=== PATIENT | female | born 1960 | race Caucasian/White ===

== ENCOUNTER 2024-01-31 13:45 | Emergency (ER) | payer OTHER, SELFPAY ==
[2024-01-31 13:46] VITALS: BP 140/78; PULSE 85; RESP 16; TEMP 36.9; O2SAT 99
--- NOTE | 2024-01-31 14:58 | EDS_ITS ---
HPI History of Present Illness Chief Complaint: Lower Extremity Injury Informant: patient and spouse/S.O. Narrative Narrative: 63-year-old female approximately 2 weeks postoperative from left knee replacement with Dr. Mix. She states that over the weekend she developed pain in the calf. She was seen today and was sent for Doppler ultrasound which demonstrates a acute DVT in the soleus vein on the left. The rest of the venous system appeared without clots. Patient is denying any chest pain or shortness of breath. She has no known clotting disorder's. The patient typically wears compressive socks but has been using Lebron wrap. However due to discomfort has not been any. Patient did receive a prescription for pain medication from her surgeon today. Patient states she had blood work done in December. From [facility] review she had a normal creatinine normal platelet count. PFSH PFS Home Medications ?Medication ?Instructions ?Recorded ?Last Taken ?Type apixaban 5 mg (74 tabs) tablets in See Rx Instructions .Route 01/31/24 Unknown Rx a dose pack ([employer] DVT-PE Treat .COMPLEX #74 tabs 30D Start) Allergy/AdvReac Type Severity Reaction Status Date / Time No Known Allergies Allergy Verified 01/31/24 13:48 ROS ROS ED Constitutional Constitutional ED: Denies chills or weight loss Eyes Eyes: Denies change in vision or diplopia ENT ENT ED: Denies ear pain, rhinorrhea or sore throat Cardiovascular Cardiovascular: Denies chest pain, orthopnea, palpitations or racing heartbeat Respiratory/Chest Respiratory/Chest: Denies cough, dyspnea or orthopnea Gastrointestinal Gastrointestinal: Denies abdominal pain, diarrhea, nausea or vomiting Genitourinary Genitourinary ED: Denies dysuria, hematuria or urinary frequency Musculoskeletal Musculoskeletal: Reports other Details: calf pain and swelling ; Denies arthralgias or myalgias Integumentary Denies abscess or rash Neurologic Neurologic: Denies headache(s) or weakness Psychiatric Psychiatric: Denies anxiety, depression, suicidal ideation or suicidal thoughts Endocrine Endocrinology: Denies polydipsia, polyphagia or polyuria Allergic/Immunologic Allergic/Immunologic ED: Denies mouth swelling, tongue swelling or urticaria EXAM Physical Exam Const Vital Signs: 01/31/24 13:46 Temperature 98.4 F Temperature Source Oral Pulse Rate 85 Respiratory Rate 16 Blood Pressure 140/78 H Blood Pressure Mean 98 Pulse Ox 99 Oxygen Delivery Method Room Air Positive well nourished, well developed and obese General Appearance ED: well developed and NAD Nutritional Appearance: obese HEENT Reports normocephalic, head/scalp atraumatic and moist mucous membranes Eyes PERRL and EOMs intact bilaterally Neck no lymphadenopathy, supple and no JVD Resp normal respiratory effort and clear to auscultation bilaterally Cardio regular rate, regular rhythm and no murmurs GI normal to inspection, nondistended, normoactive bowel sounds and non-tender Palpation: soft Back/Spine no CVA tenderness and normal ROM Extremity Extremity Narrative: There is bruising over the medial posterior aspect of the left calf. There is a healing anterior midline knee incision. There is swelling of the left leg compared to the right. There is no significant skin discoloration other than the bruising. Tender to palpation. Neuro oriented x3 and CN's II-XII intact bilaterally Sensorium / Orientation: alert Motor Exam: strength 5/5 throughout Psych mental status grossly normal Mood & Affect: Negative for depressed or tearful Skin no rashes or lesions noted and no wounds MDM MDM MDM Narrative Medical decision making narrative: I spoke with the patient and her as well as their surgeon Dr. Mix. Dr. Mix defers to primary care. I spoke with the patient's primary care doctor Dr. Jimenez. I presented the patient with the options of serial ultrasounds as it is below the knee versus treatment. She has concerns about each. At this time though using informed decision she is electing to start Eliquis. States she was recently prescribed Celebrex and when I have her hold that medication she was supposed to start that tomorrow. She will follow-up wit h primary care as well as with orthopedics. History & Record Review Discussion w/independent historian: Patient, Family and Other (Dr Mix) Discharge Plan Triage Chief Complaint: Lower Extremity Injury ED Provider: Chau Merchant Dx/Rx/DC Orders Clinical Impression: DVT of lower extremity (deep venous thrombosis), Pain of left calf Instructions: DVT Complications Prescriptions: New Eliquis DVT-PE Treat 30D Start 5 mg (74 tabs) tablets,dose pack See Rx Instructions .Route .COMPLEX Qty: 74 0RF Rx Instructions: orally per package directions Primary Care Provider: Skye Huitron Referrals: Skye Huitron MD [Primary Care Provider] - 1 Week Ian Mix MD [Med Staff - Active Staff] - Keep Otf appointment Print Language: Lao Disposition Disposition: Home, Self Care
[2024-01-31] MEDS: oxyCODONE 5 MG Tablet PO (15:24)
== END 2024-01-31 16:56 | disposition home or self-care (01) ==
PROVIDERS: Emergency Provider Emergency Medicine; PCP Student in an Organized Health Care Education/Training Program; Visit Provider Emergency Medicine
DX: I82.409 Acute embolism and thrombosis of unspecified deep veins of unspecified lower extremity (principal); M79.662 Pain in left lower leg; Z96.652 Presence of left artificial knee joint
CPT/HCPCS: 99282

== ENCOUNTER → 2024-01-31 | Outpatient (CLI) | payer OTHER, SELFPAY ==
--- NOTE | 2024-01-31 12:57 | VDLE_ITS ---
Reason For Study: LLE PAin Post Op RIGHT LEFT FV is compressible, spontaneous, phasic, GSV is normal. competent and demonstrates normal CFV is compressible, spontaneous, phasic, augmentation. competent, and demonstrates normal Procedure augmentation. This is a venous duplex using B-mode, color FV is compressible, spontaneous, phasic, flow and spectral Doppler. competent and demonstrates normal Exam performed in department. augmentation. The study was technically difficult. POP V is compressible, spontaneous, phasic, A preliminary report was called and/or faxed competent and demonstrates normal to [facility] ED. augmentation. T/P Trunk is compressible. PTV is compressible. LT PerV is compressible. Acute deep vein thrombosis is noted in the Soleus Vein. It is dilated and NONCOMPRESSIBLE. VL/Venous Duplex US, Unilateral Interpretation Summary Acute deep vein thrombosis is noted in the left soleus vein. Ordering Physician: Jamarcus Alicia Referring Physician: Skye Huitron Performed By: Santiago Chambers RVT
== END | disposition home or self-care (01) ==
LOC: CVS 12:53
PROVIDERS: PCP Student in an Organized Health Care Education/Training Program; Referring Provider Physician Assistant; Visit Provider Physician Assistant
DX: M79.662 Pain in left lower leg (principal); Z96.652 Presence of left artificial knee joint
CPT/HCPCS: 93971

== ENCOUNTER → 2024-03-01 | Outpatient (CLI) | payer OTHER, SELFPAY ==
--- NOTE | 2024-03-01 14:28 | VDLE_ITS ---
Reason For Study: Left leg swelling RIGHT LEFT CFV is compressible, spontaneous, phasic, GSV is normal. competent and demonstrates normal CFV is compressible, spontaneous, phasic, augmentation. competent, and demonstrates normal Procedure augmentation. This is a venous duplex using B-mode, color FV is compressible, spontaneous, phasic, flow and spectral Doppler. competent and demonstrates normal Exam performed in department. augmentation. Compared to 01/31/2024. POP V is compressible, spontaneous, phasic, A preliminary report was called and/or faxed competent and demonstrates normal to [facility]. augmentation. T/P Trunk is compressible. PTV is compressible. LT PerV is compressible. Acute deep vein thrombosis is noted in the Soleus Vein. It is dilated and NONCOMPRESSIBLE. VL/Venous Duplex US, Unilateral Interpretation Summary Acute deep vein thrombosis is noted in the left soleus vein. Less dilated when compared to previous study Ordering Physician: Alona Raymundo Referring Physician: Skye Huitron Performed By: Rachna Alves RVT
== END | disposition home or self-care (01) ==
LOC: CVS 14:24
PROVIDERS: PCP Student in an Organized Health Care Education/Training Program; Referring Provider Physician Assistant Surgical; Visit Provider Physician Assistant Surgical
DX: R22.42 Localized swelling, mass and lump, left lower limb (principal)
CPT/HCPCS: 93971